=== PATIENT | female | born 1985 | race Caucasian/White ===

== ENCOUNTER 2016-08-15 03:16 | Emergency (ER) | payer MEDICAID ==
[2016-08-15] MEDS ORDERED: ALBUTEROL NEB 2.5 MG/3 ML INH STA (03:49)
[2016-08-15] MEDS ORDERED: HYDROcod/ACETAM 5/325 MG TABLET PO STA (03:50)
[2016-08-15] MEDS ORDERED: DEXAMETHASONE 10 MG/ML VIAL PO STA (03:50)
[2016-08-15] MEDS ORDERED: DEXAMETHASONE 10 MG/ML VIAL ONE (04:00)
[2016-08-15] MEDS ORDERED: HYDROcod/ACETAM 5/325 MG TABLET ONE (04:00)
[2016-08-15] MEDS ORDERED: ALBUTEROL NEB 2.5 MG/3 ML INH ONE (04:03)
[2016-08-15] MEDS ORDERED: HYDROcod/ACET 5/325 Prepack 6 PO ONE ×2 (04:22→04:26)
== END 2016-08-15 04:32 | disposition home or self-care (01) ==
DX: O99.513 Diseases of the respiratory system complicating pregnancy, third trimester (principal); J06.9 Acute upper respiratory infection, unspecified; O09.293 Supervision of pregnancy with other poor reproductive or obstetric history, third trimester; Z3A.36 36 weeks gestation of pregnancy; Z87.891 Personal history of nicotine dependence
CPT/HCPCS: 94640; 99282; 99283; A9270; J7613

== ENCOUNTER 2017-04-03 15:11 | Emergency (ER) | payer OTHER, MEDICAID ==
--- NOTE | 2017-04-03 15:20 | ED Physician Documentation ---
PD HPI HEENT - Stated complaint Stated Complaint: SWOLLEN TONGUE - Chief complaint Chief Complaint: Heent - History obtained from History obtained from: Patient - History of Present Illness Timing - onset: How many days ago (few days of tongue swelling under area of long-time piercing. Has not had new ring/stud, same one for 3 months, without prior reaction to metals. No prior infections.) Timing - duration: Days Timing - details: Gradual onset, Still present Location: Mouth (tongue). 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) - Past Surgical History Past Surgical History: Yes /SCRIPT EDITOR: Dilation and currettage - Present Medications Home Medications: Ambulatory Orders Medication Instructions Recorded Confirmed Cetirizine [ZyrTEC] 10 mg PO DAILY 04/03/17 04/03/17 Chlorhexidine Gluconate [Peridex] 5 ml MM BID #118 ml 04/03/17 Clindamycin [Cleocin] 150 mg PO QID #24 capsule 04/03/17 - Allergies Allergies/Adverse Reactions: Allergies Allergy/AdvReac Type Severity Reaction Status Date / Time Penicillins Allergy Mild Rash Verified 04/03/17 15:16 Children's Motrin Allergy Hives Uncoded 04/03/17 15:16 - Social History Does the pt smoke?: No Smoking Status: Former smoker Does the pt drink ETOH?: Yes Does the pt have substance abuse?: No - Immunizations Immunizations are current?: Yes - POLST Patient has POLST: No PD ED PE NORMAL - Vitals Vital signs reviewed: Yes - General General: Alert and oriented X 3, No acute distress, Well developed/nourished - HEENT HEENT: Other (tongue with piercing hole without discharge. Stud is out right now. area of firmness and tenderness of tongue in a cm size or so. No fluctuance. No redness per se.) - Neck Neck: Supple, no meningeal sign, No adenopathy Results - Vitals Vitals: Oxygen O2 Source Room air PD MEDICAL DECISION MAKING - ED course Complexity details: considered differential (firmness without fluctuance in area and there is the hole from the piercing, so no need for I&D. ), d/w patient Departure - Departure Disposition: 01 Home, Self Care Clinical Impression: Infected pierced tongue Condition: Stable Record reviewed to determine appropriate education?: Yes Prescriptions: Clindamycin [Cleocin] 150 mg PO QID #24 capsule Chlorhexidine Gluconate [Peridex] 5 ml MM BID #118 ml Comments: I assume infection is the most likely cause for the swelling of the tongue even though it does not seem purulent. The swelling of there feels like inflammation. I would do some antimicrobial mouth rinse 2-3 times a day and you could even use a Q-tip at the piercing site with it. Also clindamycin oral antibiotic as directed. See if the swelling goes down over the next few days. Discharge Date/Time: 04/03/17 16:07
[2017-04-03 15:49] VITALS: BP 112/66
== END 2017-04-03 16:07 | disposition home or self-care (01) ==
LOC: ED 15:11
DX: K14.0 Glossitis (principal); Z87.891 Personal history of nicotine dependence
CPT/HCPCS: 99282; 99283

== ENCOUNTER 2017-04-11 18:09 | Emergency (ER) | payer MEDICAID, OTHER ==
[2017-04-11] MEDS ORDERED: LIDOCAINE VISCOUS 2% 15 ML UDC MM STA (18:33)
[2017-04-11] MEDS ORDERED: MAG HYDROX/AL HYDROX/SIMETH 30 ML UDC PO STA (18:33)
--- NOTE | 2017-04-11 18:35 | ED Physician Documentation ---
PD HPI ABD PAIN - Stated complaint Stated Complaint: ADB PX - Chief complaint Chief Complaint: Abd Pain - History obtained from History obtained from: Patient - History of Present Illness Timing - onset: Other (3 nights ago on Tuesday night she went out and she was drinking heavily. She partially remembers getting accidentally pushed while she was dancing and her upper abdomen ran into the edge of a counter. The next day she was having upper abdominal pain but she thought she was just hung over but she has persistent upper abdominal pain radiating to the back ever since. She has had a tubal ligation and a D&C with no other abdominal surgeries. She is not sure if the pain gets worse if she eats. No fevers. She is nauseous but not vomiting. She has had decreased but not absent bowel movements and decreased appetite.) Review of Systems Constitutional: denies: Fever, Chills Cardiac: denies: Chest pain / pressure, Palpitations, Pedal edema, Calf pain Respiratory: denies: Dyspnea, Cough, Hemoptysis, Wheezing GI: reports: Nausea. 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 - Present Medications Home Medications: Ambulatory Orders Medication Instructions Recorded Confirmed Cetirizine [ZyrTEC] 10 mg PO DAILY 04/03/17 04/11/17 Omeprazole [PriLOSEC] 20 mg PO DAILY #14 capsule 04/11/17 Ondansetron HCl [Zofran] 4 mg PO Q6H PRN #10 tablet 04/11/17 - Allergies Allergies/Adverse Reactions: Allergies Allergy/AdvReac Type Severity Reaction Status Date / Time Penicillins Allergy Mild Rash Verified 04/11/17 18:18 Children's Motrin Allergy Hives Uncoded 04/11/17 18:18 - Social History Does the pt smoke?: No Smoking Status: Former smoker Does the pt drink ETOH?: Yes Does the pt have substance abuse?: No - Immunizations Immunizations are current?: Yes - POLST Patient has POLST: No PD ED PE NORMAL - Vitals Vital signs reviewed: Yes - General General: Alert and oriented X 3, No acute distress - HEENT HEENT: PERRL, EOMI - Neck Neck: Supple, no meningeal sign, No bony TTP - Cardiac Cardiac: RRR, No murmur - Respiratory Respiratory: No respiratory distress, Clear bilaterally - Abdomen Abdomen: Other (Soft with normal bowel tones, mildly tender in the epigastrium and left upper quadrant without lower abdominal or right upper quadrant tenderness.) - Neuro Neuro: Alert and oriented X 3, Normal speech - Psych Psych: Normal mood, Normal affect Results - Vitals Vitals: Vital Signs - 24 hr 04/11/17 18:16 Temperature 36.1 C L Heart Rate 77 Respiratory 18 Rate Blood Pressure 116/77 O2 Saturation 99 Oxygen O2 Source Room air - Labs Labs: Laboratory Tests 04/11/17 04/11/17 04/11/17 18:55 18:55 18:55 WBC 11.5 H RBC 4.57 Hgb 12.8 Hct 38.0 MCV 83.1 MCH 28.0 MCHC 33.7 RDW 13.7 Plt Count 377 MPV 7.4 L Neut # 7.2 H Lymph # 3.1 [place] # 0.7 Eos # 0.3 Baso # 0.1 Absolute Nucleated RBC 0.01 Nucleated RBCs 0.1 Sodium 138 Potassium 3.5 Chloride 105 Carbon Dioxide 24 Anion Gap 9.0 BUN 14 Creatinine 0.5 Estimated GFR (MDRD) 146 Glucose 118 H Calcium 9.1 Total Bilirubin 1.0 AST 16 ALT 12 Alkaline Phosphatase 59 Total Protein 7.6 Albumin 4.6 Globulin 3.0 Albumin/Globulin Ratio 1.5 Lipase 39 Urine Color YELLOW Urine Clarity CLEAR Urine pH 6.0 Ur Specific Berger >=1.030 H Urine Protein TRACE Urine Glucose (UA) NEGATIVE Urine Ketones NEGATIVE Urine Occult Blood SMALL H Urine Nitrite NEGATIVE Urine Bilirubin NEGATIVE Urine Urobilinogen 0.2 (NORMAL) Ur Leukocyte Esterase NEGATIVE Urine RBC 0-5 Urine WBC 0-3 Ur Squamous Epith Cells MOD Squamous H Urine Bacteria Rare Urine Mucus Moderate Strands Ur Microscopic Review INDICATED Urine Culture Comments NOT INDICATED Urine HCG, Qual 04/11/17 18:55 WBC RBC Hgb Hct MCV MCH MCHC RDW Plt Count MPV Neut # Lymph # [place] # Eos # Baso # Absolute Nucleated RBC Nucleated RBCs Sodium Potassium Chloride Carbon Dioxide Anion Gap BUN Creatinine Estimated GFR (MDRD) Glucose Calcium Total Bilirubin AST ALT Alkaline Phosphatase Total Protein Albumin Globulin Albumin/Globulin Ratio Lipase Urine Color Urine Clarity Urine pH Ur Specific Berger >=1.030 H Urine Protein Urine Glucose (UA) Urine Ketones Urine Occult Blood Urine Nitrite Urine Bilirubin Urine Urobilinogen Ur Leukocyte Esterase Urine RBC Urine WBC Ur Squamous Epith Cells Urine Bacteria Urine Mucus Ur Microscopic Review Urine Culture Comments Urine HCG, Qual NEGATIVE - Rads (name of study) cT a/p Radiology: EMP read contemporaneously (Bilateral nephrolithiasis which she was already aware of because she has had kidney stones before and a stable hemangioma without posttraumatic abnormality.) PD MEDICAL DECISION MAKING - ED course ED course: 31-year-old woman with persistent upper abdominal pain after a night of heavy drinking and potential upper abdominal trauma. Did not have much relief with the GI cocktail here. Labs and CT were reassuring without evidence of trauma or pancreatitis. Departure - Departure Disposition: Home, Self Care Clinical Impression: Abdominal pain Qualifiers: Abdominal location: epigastric Qualified Code(s): R10.13 - Epigastric pain Condition: Good Record reviewed to determine appropriate education?: Yes Instructions: ED Abdominal Pain Unkn Cause Prescriptions: Omeprazole [PriLOSEC] 20 mg PO DAILY #14 capsule Ondansetron HCl [Zofran] 4 mg PO Q6H PRN #10 tablet PRN Reason: Nausea / Vomiting Comments: Call your doctor to arrange a follow-up appointment, make the next available appointment. In the interim, return anytime if worse or if new symptoms develop. Forms: Activity restrictions
[2017-04-11] MEDS ORDERED: MAG HYDROX/AL HYDROX/SIMETH 30 ML UDC ONE (18:40)
[2017-04-11] MEDS ORDERED: LIDOCAINE VISCOUS 2% 15 ML UDC MM ONE (18:40)
[2017-04-11 18:59] LABS: BILIRUBIN,URINE NEGATIVE (NEGATIVE)
[2017-04-11 19:02] LABS: UA w/ MICROSCOPIC CHARGE YES
[2017-04-11 19:12] LABS: ALBUMIN/GLOBULIN RATIO 1.5 (1.0-2.2); BASOPHILS # (AUTO) 0.1 10^3/uL (0.0-0.1); CALCIUM 9.1 mg/dL (8.5-10.3); CREATININE 0.5 mg/dL (0.4-1.0); EOSINOPHILS # (AUTO) 0.3 10^3/uL (0.0-0.7); HGB - HEMOGLOBIN 12.8 g/dL (12.0-16.0); LYMPHOCYTES # (AUTO) 3.1 10^3/uL (1.5-3.5); LYMPHOCYTES % (AUTO) 27.1 %; MEAN CORPUSCULAR HGB CONC 33.7 g/dL (32.0-36.0); MEAN CORPUSCULAR VOLUME 83.1 fL (81.0-99.0); MEAN PLATELET VOLUME 7.4 fL (7.9-10.8); MONOCYTES # (AUTO) 0.7 10^3/uL (0.0-1.0); MONOCYTES % (AUTO) 6.2 %; NEUTROPHILS # (AUTO) 7.2 10^3/uL (1.5-6.6); NEUTROPHILS % (AUTO) 62.7 %; NUCLEATED RED BLOOD CELLS AUTO 0.1 /100WBC; POTASSIUM 3.5 mmol/L (3.5-5.0); RED BLOOD COUNT 4.57 10^6/uL (4.20-5.40); RED CELL DISTRIBUTION WIDTH 13.7 % (12.0-15.0); TOTAL PROTEIN 7.6 g/dL (6.7-8.2); UNCORRECTED WHITE BLOOD COUNT 11.5 x10^3/uL; UR CULTURE IF IND NOT INDICATED; WBC,URINE 0-3 /HPF (0-5); WHITE BLOOD COUNT 11.5 x10^3/uL (4.8-10.8)
[2017-04-11 19:46] LABS: HCG UR QUAL NEGATIVE
[2017-04-11] MEDS ORDERED: IOPAMIDOL-300 100 ML VIAL IVP ONE (19:52)
--- NOTE | 2017-04-11 20:14 | CT Preliminary Report ---
Exam: CT Abdomen W/ IMPRESSION: 1. Stable 1.8 cm hemangioma right lobe of the liver. 2. Bilateral nephrolithiasis. 3. No acute posttraumatic abnormality. [facility] SITE ID: [id number]
[2017-04-11] MEDS ORDERED: ONDANSETRON ODT 4 MG TABLET TL STA (20:20)
[2017-04-11] MEDS ORDERED: PANTOPRAZOLE 40 MG TABLET PO STA (20:20)
--- NOTE | 2017-04-11 20:21 | CT Report ---
EXAM: CT ABDOMEN EXAM DATE: 04/11/2017 07:53 PM. CLINICAL HISTORY: Upper abdominal pain following trauma. COMPARISON: Limited abdominal ultrasound 03/25/2016. No prior CT study.. TECHNIQUE: Routine helical CT imaging was performed through the abdomen. IV contrast: 100 mL isovue- 300 Enteric contrast: No. Reconstruction: Coronal and sagittal. In accordance with CT protocol optimization, one or more of the following dose reduction techniques w ere utilized for this exam: automated exposure control, adjustment of mA and/or KV based on patient s ize, or use of iterative reconstructive technique. FINDINGS: Lung Bases: Unremarkable. Liver: Stable 1.8 cm lesion right lobe of liver consistent with hemangioma. Several 3 mm hepatic cyst s. Gallbladder/Bile Ducts: Unremarkable. Spleen: Normal. Pancreas: Normal. Adrenal Glands: Normal. Kidneys: 1.5 cm staghorn calculus inferior left calyceal system. Several 5 mm and smaller stones in b oth kidneys. No hydronephrosis nor renal mass lesions. Peritoneal Cavity/Bowel: Normal. No free fluid, free air or adenopathy. No masses or acute inflammato ry process. The appendix is well visualized and normal. Vasculature: No aneurysms or other significant abnormality. Bones: Old minimal anterior wedging T11. Trabecular and cortical patterns are intact. Other: None. IMPRESSION: 1. Stable 1.8 cm hemangioma right lobe of the liver. 2. Bilateral nephrolithiasis. 3. No acute posttraumatic abnormality. [facility] Referring Provider Line: [phone] SITE ID: [id number]
[2017-04-11] MEDS ORDERED: ONDANSETRON ODT 4 MG TABLET ONE (20:26)
[2017-04-11] MEDS ORDERED: PANTOPRAZOLE 40 MG TABLET ONE (20:26)
[2017-04-11 20:27] VITALS: BP 112/70
== END 2017-04-11 20:27 | disposition home or self-care (01) ==
LOC: ED 18:09
DX: R10.13 Epigastric pain (principal); R10.12 Left upper quadrant pain; Z87.891 Personal history of nicotine dependence
CPT/HCPCS: 36415; 74160; 80053; 81001; 81025; 83690; 85025; 99283; A9270; Q0162; Q9967; 81003; 87086

== ENCOUNTER 2017-05-10 12:59 | Emergency (ER) | payer MEDICAID ==
[2017-05-10] MEDS ORDERED: ONDANSETRON 4 MG/2 ML VIAL IVP STA (15:25)
[2017-05-10] MEDS ORDERED: SODIUM CHLORIDE 0.9% 1,000 ML IV ONE (15:25)
--- NOTE | 2017-05-10 15:27 | ED Physician Documentation ---
PD HPI NVD - Stated complaint Stated Complaint: DIARRHEA/ABD PX - Chief complaint Chief Complaint: Abd Pain - History obtained from History obtained from: Patient, Family - History of Present Illness Timing - onset: Enter time (1400), Yesterday Timing - duration: Days (1) Timing - details: Gradual onset, Still present Associated symptoms: Abdominal pain Contributing factors: No: Sick contact Improved by: Laying still Similar symptoms before: Has not had sx before Recently seen: Not recently seen - Additonal information Additional information: 31-year-old female was well yesterday morning and after lunch she began to develop some abdominal pain and diarrhea. She has had diarrhea all night long with watery diarrhea and abdominal cramping. She has had some nausea but no vomiting. She has held some fluids down and was not able to eat this morning. She has not had this happen to her previously and she remembers the last thing that she ate was a can of chili that looked and tasted normal. Review of Systems Constitutional: reports: Fatigue. denies: Fever, Chills Eyes: denies: Decreased vision Ears: denies: Ear pain Nose: denies: Congestion Throat: denies: Sore throat Cardiac: denies: Chest pain / pressure, Palpitations Respiratory: denies: Dyspnea, Cough GI: reports: Abdominal Pain, Nausea, Diarrhea. 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 - Present Medications Home Medications: Ambulatory Orders Medication Instructions Recorded Confirmed Fexofenadine HCl [Denise Allergy] 60 mg PO DAILY 05/10/17 05/10/17 Ondansetron Odt [Zofran] 4 mg TL Q6H PRN #10 tablet 05/10/17 - Allergies Allergies/Adverse Reactions: Allergies Allergy/AdvReac Type Severity Reaction Status Date / Time Penicillins Allergy Mild Rash Verified 05/10/17 13:08 Children's Motrin Allergy Hives Uncoded 04/11/17 18:18 - Social History Does the pt smoke?: No Smoking Status: Former smoker Does the pt drink ETOH?: Yes Does the pt have substance abuse?: No - Immunizations Immunizations are current?: Yes - POLST Patient has POLST: No PD ED PE NORMAL - Vitals Vital signs reviewed: Yes (normal ) - General General: No acute distress, Well developed/nourished - HEENT HEENT: Atraumatic, PERRL - Neck Neck: Supple, no meningeal sign - Cardiac Cardiac: No murmur, Other (tachy to 100) - Abdomen Abdomen: Soft, Other (mild general tenderness without garding or rebound tenderness. ) - Back Back: No CVA TTP, No spinal TTP - Derm Derm: Normal color, Warm and dry, No rash - Extremities Extremities: No deformity, No edema - Neuro Neuro: No motor deficit, No sensory deficit - Psych Psych: Normal mood, Normal affect Results - Vitals Vitals: Vital Signs - 24 hr 05/10/17 05/10/17 05/10/17 13:04 14:58 16:16 Temperature 36.3 C L 36.0 C L 35.8 C L Heart Rate 75 68 62 Respiratory 16 12 12 Rate Blood Pressure 114/71 101/51 L 117/75 O2 Saturation 100 97 99 Oxygen O2 Source Room air - Labs Labs: Laboratory Tests 05/10/17 05/10/17 15:32 15:32 WBC 8.6 RBC 4.78 Hgb 13.4 Hct 40.0 MCV 83.6 MCH 28.0 MCHC 33.5 RDW 14.1 Plt Count 313 MPV 7.2 L Neut # 6.2 Lymph # 1.5 [place] # 0.6 Eos # 0.3 Baso # 0.0 Absolute Nucleated RBC 0.00 Nucleated RBC % 0.0 Sodium 136 Potassium 3.6 Chloride 107 Carbon Dioxide 22 Anion Gap 7.0 BUN 9 Creatinine 0.4 Estimated GFR (MDRD) 189 Glucose 94 Calcium 8.4 L Total Bilirubin 2.2 H AST 12 ALT 12 Alkaline Phosphatase 54 Total Protein 7.0 Albumin 3.8 Globulin 3.2 Albumin/Globulin Ratio 1.2 Lipase 32 Procedures - IVC sono (time) 1520 Bedside IVC sono: IVC measures (cm) (0.93), IVC collapsed c insp (cm) (complete) , Dehydration PD MEDICAL DECISION MAKING - ED course Complexity details: reviewed results, re-evaluated patient, considered differential, d/w patient, d/w family ED course: 31-year-old previously healthy female with acute onset of watery diarrhea last night which is been profuse. She is now dehydrated and here in the emergency department she is administered intravenous fluids and Zofran. Departure - Departure Disposition: 01 Home, Self Care Clinical Impression: Gastroenteritis Condition: Stable Instructions: ED Food Poison Or Gastroenteritis Follow-Up: Pili Wyatt NP [Primary Care Provider] - Prescriptions: Ondansetron Odt [Zofran] 4 mg TL Q6H PRN #10 tablet PRN Reason: Nausea / Vomiting Forms: Activity restrictions
[2017-05-10 15:41] LABS: BASOPHILS % (AUTO) 0.3 %; EOSINOPHILS # (AUTO) 0.3 10^3/uL (0.0-0.7); EOSINOPHILS % (AUTO) 3.3 %; HGB - HEMOGLOBIN 13.4 g/dL (12.0-16.0); LYMPHOCYTES # (AUTO) 1.5 10^3/uL (1.5-3.5); LYMPHOCYTES % (AUTO) 17.2 %; MEAN CORPUSCULAR HGB CONC 33.5 g/dL (32.0-36.0); MEAN CORPUSCULAR VOLUME 83.6 fL (81.0-99.0); MEAN PLATELET VOLUME 7.2 fL (7.9-10.8); MONOCYTES # (AUTO) 0.6 10^3/uL (0.0-1.0); MONOCYTES % (AUTO) 6.7 %; NEUTROPHILS # (AUTO) 6.2 10^3/uL (1.5-6.6); NEUTROPHILS % (AUTO) 72.5 %; RED BLOOD COUNT 4.78 10^6/uL (4.20-5.40); RED CELL DISTRIBUTION WIDTH 14.1 % (12.0-15.0); UNCORRECTED WHITE BLOOD COUNT 8.6 x10^3/uL; WHITE BLOOD COUNT 8.6 x10^3/uL (4.8-10.8)
[2017-05-10 15:50] LABS: ALBUMIN/GLOBULIN RATIO 1.2 (1.0-2.2); BILIRUBIN,TOTAL 2.2 mg/dL (0.2-1.0); CALCIUM 8.4 mg/dL (8.5-10.3); CREATININE 0.4 mg/dL (0.4-1.0); POTASSIUM 3.6 mmol/L (3.5-5.0)
[2017-05-10] MEDS ORDERED: ONDANSETRON 4 MG/2 ML VIAL ONE (16:42)
[2017-05-10 18:17] VITALS: BP 111/60
== END 2017-05-10 18:16 | disposition home or self-care (01) ==
LOC: ED 12:59
DX: K52.9 Noninfective gastroenteritis and colitis, unspecified (principal); Z87.891 Personal history of nicotine dependence
CPT/HCPCS: 36415; 80053; 83690; 85025; 96374; 99283

== ENCOUNTER 2020-08-01 14:49 | Outpatient (CLI) | payer OTHER | END 2020-08-01 14:50 | disposition home or self-care (01) | LOC: COV 14:49 | PROVIDERS: ATTEND Family Medicine | DX: Z20.828 Contact with and (suspected) exposure to other viral communicable diseases (principal) ==

== ENCOUNTER 2022-07-09 12:57 | Emergency (ER) | payer OTHER ==
--- OUTSIDE RECORDS SUMMARY | 2022-07-09 13:37 | EXTERNAL MEDICAL SUMMARY RPT | Continuity of Care Document ---
:1985 Author Organization [facility] Address [address] [place] [address] Phone Care Team Providers Name Role Phone Danielle Kernsn Unavailable Unavailable Allergies and Intolerances date description facility type (no date) [facility] (unknown) Encounters No information. Functional Status No information. Immunizations No information. Medications date description facility [id number] [facility] Problems No information. Procedures No information. Results/Labs test date author facility value unit interpret ation Result panel 1 (unknown) (no (unknown) (unknown) (no value) (units (unk nown) date) unknown) (unknown) (no (unknown) (unknown) [id number] (units (unkn own) date) unknown) (unknown) (no (unknown) (unknown) 06/21/22 (units (unkno wn) date) unknown) (unknown) (no (unknown) (unknown) Acute maxillary (units (unknown) date) sinusitis unknown) (unknown) (no (unknown) (unknown) Age/Sex: 36 / F (units (unknown) date) Date of Service: unknown) (unknown) (no (unknown) (unknown) Allergies (units (unkn own) date) unknown) (unknown) (no (unknown) (unknown) [facility] (units (unknown) date) Medicine unknown) (unknown) (no (unknown) (unknown) [place], [place] (units ( unknown) date) [id number] unknown) (unknown) (no (unknown) (unknown) Anesthesia (units (unk nown) date) unknown) (unknown) (no (unknown) (unknown) Ankle pain (units (unk nown) date) () unknown) (unknown) (no (unknown) (unknown) Attending Dr: (units ( unknown) date) Adry Abarca unknown) 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 unknown) (unknown) (no (unknown) (unknown) Documented By: (units (unknown) date) Adry Abarca unknown) [facility] 06/21/22 0943 (unknown) (no (unknown) (unknown) Draft (units (unkno wn) date) unknown) (unknown) (no (unknown) (unknown) Family History (units (unknown) date) (Reviewed 02/05/22 unknown) @ 11:14 by Presley Kerns DO) (unknown) (no (unknown) (unknown) Family Practice (units (unknown) date) Office Visit unknown) (unknown) (no (unknown) (unknown) Father Age: 64 (units (unknown) date) Diabetes mellitus unknown) (unknown) (no (unknown) (unknown) Foot pain (-2012) (units (unknown) date) unknown) (unknown) (no (unknown) (unknown) Grandfather (units (un known) date) Bladder cancer unknown) (unknown) (no (unknown) (unknown) Grandfather (units (un known) date) Diabetes unknown) mellitus (unknown) (no (unknown) (unknown) Grandmother (units (un known) date) Glaucoma unknown) (unknown) (no (unknown) (unknown) HIVES (units (unkno wn) date) unknown) (unknown) (no (unknown) (unknown) History of (units (unk nown) date) nephrolithiasis unknown) (unknown) (no (unknown) (unknown) Hypertension (units (u nknown) date) unknown) (unknown) (no (unknown) (unknown) Intake Note: (units (u nknown) date) unknown) (unknown) (no (unknown) (unknown) Intake performed (units (unknown) date) by: Nadine Lorenzana unknown) (unknown) (no (unknown) (unknown) Intake (units (unkno wn) date) unknown) (unknown) (no (unknown) (unknown) Intake- Clincial (units (unknown) date) Staff unknown) (unknown) (no (unknown) (unknown) Last Menstural (units (unknown) date) Cycle + Details unknown) (unknown) (no (unknown) (unknown) Loc: [facility] (units (unkno wn) date) unknown) (unknown) (no (unknown) (unknown) Medical History (units (unknown) date) (Updated 02/05/22 unknown) @ 11:15 by Presley Kerns DO) (unknown) (no (unknown) (unknown) Medications (units (un known) date) unknown) (unknown) (no (unknown) (unknown) Other Menstrual (units (unknown) date) Period: Other unknown) (unknown) (no (unknown) (unknown) PFSH (units (unkno wn) date) unknown) (unknown) (no (unknown) (unknown) Patient presents (units (unknown) date) to [facility] with unknown) concerns for chest tightness, productive cough x 2 (unknown) (no (unknown) (unknown) Patient: (units (unkno wn) date) Caroline Muhammad Alejandra unknown) MR#: M (unknown) (no (unknown) (unknown) Penicillins (units (un known) date) [PENICILLINS] unknown) Allergy (Mild, Verified 06/21/22 09:47) (unknown) (no (unknown) (unknown) Peroneal (units (unkno wn) date) tendonitis unknown) (unknown) (no (unknown) (unknown) Reason For Visit (units (unknown) date) unknown) (unknown) (no (unknown) (unknown) Signed By: (units (unk nown) date) unknown) (unknown) (no (unknown) (unknown) Smoking Status: (units (unknown) date) Former smoker unknown) (unknown) (no (unknown) (unknown) Status post (units (un known) date) dilation and unknown) curettage () (unknown) (no (unknown) (unknown) Status post tubal (units (unknown) date) ligation unknown) (09/16/16) (unknown) (no (unknown) (unknown) Surgical History (units (unknown) date) (Reviewed 02/05/22 unknown) @ 11:14 by Presley Kerns DO) (unknown) (no (unknown) (unknown) TMJ pain (units (unkno wn) date) dysfunction unknown) syndrome (unknown) (no (unknown) (unknown) This note may (units ( unknown) date) have been all or unknown) partially generated using voice recognition (unknown) (no (unknown) (unknown) Tobacco + (units (unkn own) date) Substance Use unknown) (unknown) (no (unknown) (unknown) Tobacco Status (units (unknown) date) unknown) (unknown) (no (unknown) (unknown) Visit Reasons: (units (unknown) date) dry cough chest unknown) pain sob (unknown) (no (unknown) (unknown) [Rx Confirmed (units ( unknown) date) 06/21/22] unknown) (unknown) (no (unknown) (unknown) children's (units (unk nown) date) ibuprofen Allergy unknown) (Uncoded 06/21/22 09:47) (unknown) (no (unknown) (unknown) days. Patient (units (u nknown) date) reports chest unknown) tightness, intermittent brown sputum with cough, and (unknown) (no (unknown) (unknown) have occurred. If (units (unknown) date) there are any unknown) questions, please contact the Medical Records (unknown) (no (unknown) (unknown) may occur. (units (unk nown) date) Occasional unknown) wrong-word or 'sound-alike' substitutions may have (unknown) (no (unknown) (unknown) occurred due to (units (unknown) date) the inherent unknown) limitations of voice recognition software. Please (unknown) (no (unknown) (unknown) pressure headache (units (unknown) date) with cough. Denies unknown) fever. (unknown) (no (unknown) (unknown) read the note (units ( unknown) date) carefully and unknown) recognize, using context, where these substitutions (unknown) (no (unknown) (unknown) sertraline 100 mg (units (unknown) date) tablet See Rx unknown) Instructions .Route .COMPLEX #90 tabs 04/13/22 (unknown) (no (unknown) (unknown) software. (units (unkn own) date) Although every unknown) effort is made to edit content, chip silo tender errors Result panel 2 (unknown) (no (unknown) (unknown) (no value) (units (unk nown) date) unknown) (unknown) (no (unknown) (unknown) [id number] (units (unkn own) date) unknown) (unknown) (no (unknown) (unknown) 09:50 (units (unkno wn) date) unknown) (unknown) (no (unknown) (unknown) 06/21/22 (units (unkno wn) date) unknown) (unknown) (no (unknown) (unknown) Acute maxillary (units (unknown) date) sinusitis unknown) (unknown) (no (unknown) (unknown) Age/Sex: 36 / F (units (unknown) date) Date of Service: unknown) (unknown) (no (unknown) (unknown) Allergies (units (unkn own) date) unknown) (unknown) (no (unknown) (unknown) [facility] (units (unknown) date) Medicine unknown) (unknown) (no (unknown) (unknown) [place], [place] (units ( unknown) date) [id number] unknown) (unknown) (no (unknown) (unknown) Anesthesia (units (unk nown) date) unknown) (unknown) (no (unknown) (unknown) Ankle pain (units (unk nown) date) () unknown) (unknown) (no (unknown) (unknown) Assessment + Plan (units (unknown) date) unknown) (unknown) (no (unknown) (unknown) Attending Dr: (units ( unknown) date) Adry Abarca unknown) RECONCILIATION MANAGER (unknown) (no (unknown) (unknown) BP 118/85 (units (unkn own) date) unknown) (unknown) (no (unknown) (unknown) Blood Pressure (units (unknown) date) Location Lt radial unknown) (unknown) (no (unknown) (unknown) Breast cancer (units ( unknown) date) unknown) (unknown) (no (unknown) (unknown) Brother Age: 32 (units (unknown) date) Hypertension unknown) (unknown) (no (unknown) (unknown) Carpal tunnel (units ( unknown) date) syndrome of right unknown) wrist (unknown) (no (unknown) (unknown) Covid-19 + FLU (units (unknown) date) A/B + RSV - PCR unknown) Today R05.9 - Cough, unspecified (unknown) (no (unknown) (unknown) : 1985 (units (unknown) date) Acct:[id number] unknown) (unknown) (no (unknown) (unknown) Depression (units (unk nown) date) (-2014) unknown) (unknown) (no (unknown) (unknown) Dept at (units (unkno wn) date) . unknown) (unknown) (no (unknown) (unknown) Documented By: (units (unknown) date) Adry Abarca unknown) [facility] 06/21/22 0943 (unknown) (no (unknown) (unknown) Draft (units (unkno wn) date) unknown) (unknown) (no (unknown) (unknown) Family History (units (unknown) date) (Reviewed 02/05/22 unknown) @ 11:14 by Presley Kerns DO) (unknown) (no (unknown) (unknown) Family Practice (units (unknown) date) Office Visit unknown) (unknown) (no (unknown) (unknown) Father Age: 64 (units (unknown) date) Diabetes mellitus unknown) (unknown) (no (unknown) (unknown) Foot pain (-2012) (units (unknown) date) unknown) (unknown) (no (unknown) (unknown) Grandfather (units (un known) date) Bladder cancer unknown) (unknown) (no (unknown) (unknown) Grandfather (units (un known) date) Diabetes unknown) mellitus (unknown) (no (unknown) (unknown) Grandmother (units (un known) date) Glaucoma unknown) (unknown) (no (unknown) (unknown) HIVES (units (unkno wn) date) unknown) (unknown) (no (unknown) (unknown) History of (units (unk nown) date) nephrolithiasis unknown) (unknown) (no (unknown) (unknown) Hypertension (units (u nknown) date) unknown) (unknown) (no (unknown) (unknown) Intake Note: (units (u nknown) date) unknown) (unknown) (no (unknown) (unknown) Intake performed (units (unknown) date) by: Nadine Lorenzana unknown) (unknown) (no (unknown) (unknown) Intake (units (unkno wn) date) unknown) (unknown) (no (unknown) (unknown) Intake- Clincial (units (unknown) date) Staff unknown) (unknown) (no (unknown) (unknown) Last Menstural (units (unknown) date) Cycle + Details unknown) (unknown) (no (unknown) (unknown) Loc: [facility] (units (unkno wn) date) unknown) (unknown) (no (unknown) (unknown) Medical History (units (unknown) date) (Updated 02/05/22 unknown) @ 11:15 by Presley Kerns DO) (unknown) (no (unknown) (unknown) Medications (units (un known) date) unknown) (unknown) (no (unknown) (unknown) Orders (units (unkno wn) date) unknown) (unknown) (no (unknown) (unknown) Orders: (units (unkno wn) date) unknown) (unknown) (no (unknown) (unknown) Other Menstrual (units (unknown) date) Period: Other unknown) (unknown) (no (unknown) (unknown) Oxygen Delivery (units (unknown) date) Method room air unknown) (unknown) (no (unknown) (unknown) PFSH (units (unkno wn) date) unknown) (unknown) (no (unknown) (unknown) Patient presents (units (unknown) date) to [facility] with unknown) concerns for chest tightness, productive cough x 2 (unknown) (no (unknown) (unknown) Patient: (units (unkno wn) date) Caroline Muhammad L unknown) MR#: M (unknown) (no (unknown) (unknown) Penicillins (units (un known) date) [PENICILLINS] unknown) Allergy (Mild, Verified 06/21/22 09:47) (unknown) (no (unknown) (unknown) Peroneal (units (unkno wn) date) tendonitis unknown) (unknown) (no (unknown) (unknown) Position Sitting (units (unknown) date) unknown) (unknown) (no (unknown) (unknown) Pulse 80 (units (unkno wn) date) unknown) (unknown) (no (unknown) (unknown) Pulse Oximetry (units (unknown) date) (%) 99 unknown) (unknown) (no (unknown) (unknown) Pulse Source (units (u nknown) date) Monitor unknown) (unknown) (no (unknown) (unknown) Reason For Visit (units (unknown) date) unknown) (unknown) (no (unknown) (unknown) Respiration 16 (units (unknown) date) unknown) (unknown) (no (unknown) (unknown) Signed By: (units (unk nown) date) unknown) (unknown) (no (unknown) (unknown) Smoking Status: (units (unknown) date) Former smoker unknown) (unknown) (no (unknown) (unknown) Status post (units (un known) date) dilation and unknown) curettage () (unknown) (no (unknown) (unknown) Status post tubal (units (unknown) date) ligation unknown) (09/16/16) (unknown) (no (unknown) (unknown) Surgical History (units (unknown) date) (Reviewed 02/05/22 unknown) @ 11:14 by Presley Kerns DO) (unknown) (no (unknown) (unknown) TMJ pain (units (unkno wn) date) dysfunction unknown) syndrome (unknown) (no (unknown) (unknown) Temp 96.9 F L (units ( unknown) date) unknown) (unknown) (no (unknown) (unknown) Temp Source (units (un known) date) Temporal Artery unknown) Scan (unknown) (no (unknown) (unknown) This note may (units ( unknown) date) have been all or unknown) partially generated using voice recognition (unknown) (no (unknown) (unknown) Tobacco + (units (unkn own) date) Substance Use unknown) (unknown) (no (unknown) (unknown) Tobacco Status (units (unknown) date) unknown) (unknown) (no (unknown) (unknown) Visit Reasons: (units (unknown) date) dry cough chest unknown) pain sob (unknown) (no (unknown) (unknown) Vitals (units (unkno wn) date) unknown) (unknown) (no (unknown) (unknown) [Rx Confirmed (units ( unknown) date) 06/21/22] unknown) (unknown) (no (unknown) (unknown) children's (units (unk nown) date) ibuprofen Allergy unknown) (Uncoded 06/21/22 09:47) (unknown) (no (unknown) (unknown) days. Patient (units (u nknown) date) reports chest unknown) tightness, intermittent brown sputum with cough, and (unknown) (no (unknown) (unknown) have occurred. If (units (unknown) date) there are any unknown) questions, please contact the Medical Records (unknown) (no (unknown) (unknown) may occur. (units (unk nown) date) Occasional unknown) wrong-word or 'sound-alike' substitutions may have (unknown) (no (unknown) (unknown) occurred due to (units (unknown) date) the inherent unknown) limitations of voice recognition software. Please (unknown) (no (unknown) (unknown) pressure headache (units (unknown) date) with cough. Denies unknown) fever. (unknown) (no (unknown) (unknown) read the note (units ( unknown) date) carefully and unknown) recognize, using context, where these substitutions (unknown) (no (unknown) (unknown) sertraline 100 mg (units (unknown) date) tablet See Rx unknown) Instructions .Route .COMPLEX #90 tabs 04/13/22 (unknown) (no (unknown) (unknown) software. (units (unkn own) date) Although every unknown) effort is made to edit content, chip silo tender errors Result panel 3 (unknown) (no (unknown) (unknown) (no value) (units (unk nown) date) unknown) (unknown) (no (unknown) (unknown) (1) Viral (units (unkn own) date) illness: unknown) (unknown) (no (unknown) (unknown) [id number] (units (unkn own) date) unknown) (unknown) (no (unknown) (unknown) 09:50 (units (unkno wn) date) unknown) (unknown) (no (unknown) (unknown) 06/21/22 1006 (units ( unknown) date) unknown) (unknown) (no (unknown) (unknown) 06/21/22 (units (unkno wn) date) unknown) (unknown) (no (unknown) (unknown) Acute maxillary (units (unknown) date) sinusitis unknown) (unknown) (no (unknown) (unknown) Age/Sex: 36 / F (units (unknown) date) Date of Service: unknown) (unknown) (no (unknown) (unknown) Allergies (units (unkn own) date) unknown) (unknown) (no (unknown) (unknown) [facility] (units (unknown) date) Medicine unknown) (unknown) (no (unknown) (unknown) [place], [place] (units ( unknown) date) [id number] unknown) (unknown) (no (unknown) (unknown) Anesthesia (units (unk nown) date) unknown) (unknown) (no (unknown) (unknown) Ankle pain (units (unk nown) date) (-2012) unknown) (unknown) (no (unknown) (unknown) Assessment + Plan (units (unknown) date) unknown) (unknown) (no (unknown) (unknown) Attending Dr: (units ( unknown) date) Adry Abarca unknown) RECONCILIATION MANAGER (unknown) (no (unknown) (unknown) Auscultation: (units ( unknown) date) clear to unknown) auscultation bilaterally (unknown) (no (unknown) (unknown) BMI 36.6 (units (unkno wn) date) unknown) (unknown) (no (unknown) (unknown) BP 118/85 (units (unkn own) date) unknown) (unknown) (no (unknown) (unknown) Blood Pressure (units (unknown) date) Location Lt radial unknown) (unknown) (no (unknown) (unknown) Breast cancer (units ( unknown) date) unknown) (unknown) (no (unknown) (unknown) Brother Age: 32 (units (unknown) date) Hypertension unknown) (unknown) (no (unknown) (unknown) Carpal tunnel (units ( unknown) date) syndrome of right unknown) wrist (unknown) (no (unknown) (unknown) Chief Complaint (units (unknown) date) unknown) (unknown) (no (unknown) (unknown) Chief Complaint: (units (unknown) date) Cough unknown) (unknown) (no (unknown) (unknown) Confirmed (units (unkn own) date) 06/21/22] unknown) (unknown) (no (unknown) (unknown) Const (units (unkno wn) date) unknown) (unknown) (no (unknown) (unknown) Covid-19 + FLU (units (unknown) date) A/B + RSV - PCR unknown) Today R05.9 - Cough, unspecified (unknown) (no (unknown) (unknown) : 1985 (units (unknown) date) Acct:[id number] unknown) (unknown) (no (unknown) (unknown) Depression (units (unk nown) date) (-2014) unknown) (unknown) (no (unknown) (unknown) Dept at (units (unkno wn) date) . unknown) (unknown) (no (unknown) (unknown) Details: (units (unkno wn) date) unknown) (unknown) (no (unknown) (unknown) Documented By: (units (unknown) date) Adry Abarca unknown) [facility] 06/21/22 0943 (unknown) (no (unknown) (unknown) Ears: hearing (units ( unknown) date) grossly normal unknown) bilaterally, external ears normal and TM's normal (unknown) (no (unknown) (unknown) Effort + (units (unkno wn) date) Inspection: normal unknown) respiratory effort (unknown) (no (unknown) (unknown) Exam Narrative (units (unknown) date) unknown) (unknown) (no (unknown) (unknown) Exam Narrative: (units (unknown) date) unknown) (unknown) (no (unknown) (unknown) Exam within (units (un known) date) normal limits, HPI unknown) suggest viral symptoms. Supportive treatment (unknown) (no (unknown) (unknown) Exam (units (unkno wn) date) unknown) (unknown) (no (unknown) (unknown) Eyes (units (unkno wn) date) unknown) (unknown) (no (unknown) (unknown) Family History (units (unknown) date) (Reviewed 02/05/22 unknown) @ 11:14 by Presley Kerns DO) (unknown) (no (unknown) (unknown) Family Practice (units (unknown) date) Office Visit unknown) (unknown) (no (unknown) (unknown) Father Age: 64 (units (unknown) date) Diabetes mellitus unknown) (unknown) (no (unknown) (unknown) Foot pain (-2013) (units (unknown) date) unknown) (unknown) (no (unknown) (unknown) General: (units (unkno wn) date) appearance normal, unknown) both eyes and all related structures (unknown) (no (unknown) (unknown) General: (units (unkno wn) date) cooperative, unknown) healthy appearing, comfortable and no acute distress (unknown) (no (unknown) (unknown) General: no (units (un known) date) rashes or lesions unknown) noted (unknown) (no (unknown) (unknown) Grandfather (units (un known) date) Bladder cancer unknown) (unknown) (no (unknown) (unknown) Grandfather (units (un known) date) Diabetes unknown) mellitus (unknown) (no (unknown) (unknown) Grandmother (units (un known) date) Glaucoma unknown) (unknown) (no (unknown) (unknown) HENMT (units (unkno wn) date) unknown) (unknown) (no (unknown) (unknown) HIVES (units (unkno wn) date) unknown) (unknown) (no (unknown) (unknown) HPI (units (unkno wn) date) unknown) (unknown) (no (unknown) (unknown) Head: normal to (units (unknown) date) inspection unknown) (unknown) (no (unknown) (unknown) Height 5 ft 2 in (units (unknown) date) unknown) (unknown) (no (unknown) (unknown) History of (units (unk nown) date) nephrolithiasis unknown) (unknown) (no (unknown) (unknown) Hypertension (units (u nknown) date) unknown) (unknown) (no (unknown) (unknown) Intake Note: (units (u nknown) date) unknown) (unknown) (no (unknown) (unknown) Intake performed (units (unknown) date) by: Nadine Lorenzana unknown) (unknown) (no (unknown) (unknown) Intake (units (unkno wn) date) unknown) (unknown) (no (unknown) (unknown) Intake- Clincial (units (unknown) date) Staff unknown) (unknown) (no (unknown) (unknown) Last Menstural (units (unknown) date) Cycle + Details unknown) (unknown) (no (unknown) (unknown) Loc: [facility] (units (unkno wn) date) unknown) (unknown) (no (unknown) (unknown) Medical History (units (unknown) date) (Updated 02/05/22 unknown) @ 11:15 by Presley Kerns DO) (unknown) (no (unknown) (unknown) Medications (units (un known) date) unknown) (unknown) (no (unknown) (unknown) Medications: (units (u nknown) date) unknown) (unknown) (no (unknown) (unknown) Mouth: oral (units (un known) date) mucosae normal unknown) (unknown) (no (unknown) (unknown) Neck (units (unkno wn) date) unknown) (unknown) (no (unknown) (unknown) Neck: normal (units (u nknown) date) visual inspection, unknown) full ROM and no lymphadenopathy (unknown) (no (unknown) (unknown) New (units (unkno wn) date) unknown) (unknown) (no (unknown) (unknown) Nose: external (units (unknown) date) nose normal unknown) (unknown) (no (unknown) (unknown) Orders (units (unkno wn) date) unknown) (unknown) (no (unknown) (unknown) Orders: (units (unkno wn) date) unknown) (unknown) (no (unknown) (unknown) Other Menstrual (units (unknown) date) Period: Other unknown) (unknown) (no (unknown) (unknown) Oxygen Delivery (units (unknown) date) Method room air unknown) (unknown) (no (unknown) (unknown) PFSH (units (unkno wn) date) unknown) (unknown) (no (unknown) (unknown) Patient presents (units (unknown) date) to [facility] with unknown) concerns for chest tightness, productive cough x 2 (unknown) (no (unknown) (unknown) Patient presents (units (unknown) date) with to unknown) walk-in clinic with complaints of cough, (unknown) (no (unknown) (unknown) Patient states (units (unknown) date) that she has young unknown) kids at home who had viral illnesses the week (unknown) (no (unknown) (unknown) Patient: (units (unkno wn) date) Jb,Caroline L unknown) MR#: M (unknown) (no (unknown) (unknown) Penicillins (units (un known) date) [PENICILLINS] unknown) Allergy (Mild, Verified 06/21/22 09:47) (unknown) (no (unknown) (unknown) Peroneal (units (unkno wn) date) tendonitis unknown) (unknown) (no (unknown) (unknown) Plan (units (unkno wn) date) unknown) (unknown) (no (unknown) (unknown) Position Sitting (units (unknown) date) unknown) (unknown) (no (unknown) (unknown) Pulse 80 (units (unkno wn) date) unknown) (unknown) (no (unknown) (unknown) Pulse Oximetry (units (unknown) date) (%) 99 unknown) (unknown) (no (unknown) (unknown) Pulse Source (units (u nknown) date) Monitor unknown) (unknown) (no (unknown) (unknown) Reason For Visit (units (unknown) date) unknown) (unknown) (no (unknown) (unknown) Resp (units (unkno wn) date) unknown) (unknown) (no (unknown) (unknown) Respiration 16 (units (unknown) date) unknown) (unknown) (no (unknown) (unknown) Signed By: (units (unk nown) date) <Electronically unknown) signed by Adry Abarca> (unknown) (no (unknown) (unknown) Signed (units (unkno wn) date) unknown) (unknown) (no (unknown) (unknown) Skin (units (unkno wn) date) unknown) (unknown) (no (unknown) (unknown) Smoking Status: (units (unknown) date) Former smoker unknown) (unknown) (no (unknown) (unknown) Status post (units (un known) date) dilation and unknown) curettage (-2009) (unknown) (no (unknown) (unknown) Status post tubal (units (unknown) date) ligation unknown) (09/16/16) (unknown) (no (unknown) (unknown) Surgical History (units (unknown) date) (Reviewed 02/05/22 unknown) @ 11:14 by Presley Kerns DO) (unknown) (no (unknown) (unknown) TMJ pain (units (unkno wn) date) dysfunction unknown) syndrome (unknown) (no (unknown) (unknown) Temp 96.9 F L (units ( unknown) date) unknown) (unknown) (no (unknown) (unknown) Temp Source (units (un known) date) Temporal Artery unknown) Scan (unknown) (no (unknown) (unknown) This note may (units ( unknown) date) have been all or unknown) partially generated using voice recognition (unknown) (no (unknown) (unknown) Throat: posterior (units (unknown) date) oropharynx normal unknown) (unknown) (no (unknown) (unknown) Tobacco + (units (unkn own) date) Substance Use unknown) (unknown) (no (unknown) (unknown) Tobacco Status (units (unknown) date) unknown) (unknown) (no (unknown) (unknown) Visit Reasons: (units (unknown) date) dry cough chest unknown) pain sob (unknown) (no (unknown) (unknown) Vitals (units (unkno wn) date) unknown) (unknown) (no (unknown) (unknown) Weight 200 lb 8 (units (unknown) date) oz unknown) (unknown) (no (unknown) (unknown) [Rx Confirmed (units ( unknown) date) 06/21/22] unknown) (unknown) (no (unknown) (unknown) benzonatate 100 (units (unknown) date) mg PO BID PRN 20 unknown) caps 0RF cough (unknown) (no (unknown) (unknown) benzonatate 100 (units (unknown) date) mg capsule 100 mg unknown) PO BID PRN cough #20 caps 06/21/22 [Rx (unknown) (no (unknown) (unknown) bilaterally (units (un known) date) unknown) (unknown) (no (unknown) (unknown) children's (units (unk nown) date) ibuprofen Allergy unknown) (Uncoded 06/21/22 09:47) (unknown) (no (unknown) (unknown) days. Patient (units (u nknown) date) reports chest unknown) tightness, intermittent brown sputum with cough, and (unknown) (no (unknown) (unknown) feels wheezy (units (u nknown) date) after coughing unknown) episodes. She also reports some brown sputum. (unknown) (no (unknown) (unknown) have occurred. If (units (unknown) date) there are any unknown) questions, please contact the Medical Records (unknown) (no (unknown) (unknown) help and patient (units (unknown) date) is able to sleep unknown) throughout the night. Patient denies smoking (unknown) (no (unknown) (unknown) including (units (unkn own) date) [id number] unknown) medications such as Delsym, Tylenol/ibuprofen. Rest, (unknown) (no (unknown) (unknown) increase fluids. (units (unknown) date) Return to the unknown) emergency department if symptoms worsen, new (unknown) (no (unknown) (unknown) may occur. (units (unk nown) date) Occasional unknown) wrong-word or 'sound-alike' substitutions may have (unknown) (no (unknown) (unknown) occasional (units (unk nown) date) wheezing and chest unknown) tightness for 2 days. Patient states cough is (unknown) (no (unknown) (unknown) occurred due to (units (unknown) date) the inherent unknown) limitations of voice recognition software. Please (unknown) (no (unknown) (unknown) or any history of (units (unknown) date) respiratory issues unknown) including asthma or COPD. She reports she (unknown) (no (unknown) (unknown) oriented and (units (u nknown) date) comfortable and unknown) able to talk in full sentences without distress. (unknown) (no (unknown) (unknown) pressure headache (units (unknown) date) with cough. Denies unknown) fever. (unknown) (no (unknown) (unknown) prior. Patient (units (unknown) date) denies fever, body unknown) aches, chest pain. Patient is alert, (unknown) (no (unknown) (unknown) read the note (units ( unknown) date) carefully and unknown) recognize, using context, where these substitutions (unknown) (no (unknown) (unknown) sertraline 100 mg (units (unknown) date) tablet See Rx unknown) Instructions .Route .COMPLEX #90 tabs 04/13/22 (unknown) (no (unknown) (unknown) software. (units (unkn own) date) Although every unknown) effort is made to edit content, chip silo tender errors (unknown) (no (unknown) (unknown) symptoms develop. (units (unknown) date) Follow-up with unknown) primary care as needed. (unknown) (no (unknown) (unknown) worse in the (units (u nknown) date) morning, with unknown) [id number] cough medication it does seem to Social History date description facility +0000 Ex-smoker (finding) [facility] Vital Signs date measurement value units +0000 BMI BMI 36.6 kg/m2 +0000 BP_diastolic BP_diastolic 85 mmHg +0000 BP_systolic BP_systolic 118 mmHg [id number]+0000 heart_rate heart_rate 80 /min +0000 height_metric height_metric 157.48 cm +0000 height_standard height_standard 62 in +0000 o2_saturation o2_saturation 99 % +0000 respiration_rate respiration_rate 16 /min +0000 temperature_metric temperature_metric 36.06 C +0000 temperature_standard temperature_standard 9 6.9 F +0000 weight_metric weight_metric 90.94 kg +0000 weight_standard weight_standard 200.49 lb
--- NOTE | 2022-07-09 15:11 | XRAY Report ---
PROCEDURE: Chest 2 View X-Ray INDICATIONS: cough TECHNIQUE: 2 views of the chest were acquired. COMPARISON: Lung bases on CT abdomen and 04/11/2017. FINDINGS: Surgical changes and devices: None. Lungs and pleura: No pleural effusions or pneumothorax. Lungs appear clear. No consolidation identi fied. Mediastinum: Mediastinal contours are unchanged. Asymmetric elevation of the right hemidiaphragm.. Heart size is normal. Bones and chest wall: No suspicious bony abnormalities. Soft tissues appear unremarkable. IMPRESSION: No consolidation identified. Reviewed by: Vazquez Fuentes MD on 07/09/2022 3:10 PM PST Approved by: Vazquez Fuentes MD on 07/09/2022 3:10 PM PST Station ID: [id number]
[2022-07-09] MEDS ORDERED: BENZONATATE 100 MG CAPSULE PO STA (15:42)
[2022-07-09] MEDS ORDERED: ALBUTEROL NEB 2.5 MG/3 ML INH STA (15:42)
[2022-07-09 15:49] LABS: CORONAVIRUS 229E-RESP PCR NOT DETECTED; CORONAVIRUS HKU1-RESP PCR NOT DETECTED; CORONAVIRUS NL63-RESP PCR NOT DETECTED; CORONAVIRUS OC43-RESP PCR NOT DETECTED; HUMAN METAPNEUMOVIRUS NOT DETECTED; RHINOVIRUS/ENTEROVIRUS NOT DETECTED; SARS-CoV-2 -RESP PCR PANEL NOT DETECTED
[2022-07-09 15:50] LABS: B. PARAPERTUSSIS- RESP PCR PAN NOT DETECTED; B. PERTUSSIS- RESP PCR PANEL NOT DETECTED; C. PNEUMONIAE- RESP PCR PANEL NOT DETECTED; INFLUENZA A H3- RESP PCR PANEL DETECTED; INFLUENZA B - RESP PCR PANEL NOT DETECTED; M. PNEUMONIAE- RESP PCR PANEL NOT DETECTED; PARAINFLUENZA VIRUS 1 NOT DETECTED; PARAINFLUENZA VIRUS 2 NOT DETECTED; PARAINFLUENZA VIRUS 3 NOT DETECTED; PARAINFLUENZA VIRUS 4 NOT DETECTED; RSV- RESP PCR PANEL NOT DETECTED
--- NOTE | 2022-07-09 15:51 | ED Physician Documentation ---
PD HPI URI - Stated complaint Stated Complaint: COUGH - Chief complaint Chief Complaint: Resp - History obtained from History obtained from: Patient - History of Present Illness Timing - onset: How many weeks ago (several) Timing details: Gradual onset Pain level max: 0 Pain level now: 0 Associated symptoms: Nasal congestion, Rhinorrhea, Dry cough, Dyspnea. No: Fever, Chills Recently seen: Not recently seen - Additional information Additional information: Patient is a 36-year-old female who states that she has had a cough for the past several weeks. Children have been sick with same. She states that recently she has had increased coughing and wheezing. She has used inhalers in the past as a child. Does not use any inhalers now. No nausea or vomiting. Denies any possibility of . Is not breast-feeding. 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) - Past Surgical History Past Surgical History: Yes /STA[employer]ING [employer]: Dilation and currettage - Present Medications Home Medications: Ambulatory Orders Medication Instructions Recorded Confirmed Fexofenadine HCl [Denise Allergy] 60 mg PO DAILY 05/10/17 05/10/17 Ondansetron Odt [Zofran] 4 mg TL Q6H PRN #10 tablet 05/10/17 Albuterol Sulf [Ventolin Hfa 1 - 2 puffs INH Q4HR PRN #1 each 07/09/22 Inhaler] Benzonatate [Tessalon] 200 mg PO TID PRN #30 cap 07/09/22 - Allergies Allergies/Adverse Reactions: Allergies Allergy/AdvReac Type Severity Reaction Status Date / Time Penicillins Allergy Mild Rash Verified 05/10/17 13:08 Children's Motrin Allergy Hives Uncoded 04/11/17 18:18 - Social History Does the pt smoke?: No Smoking Status: Former smoker Does the pt drink ETOH?: Yes Does the pt have substance abuse?: No - Immunizations Immunizations are current?: Yes - POLST Patient has POLST: No PD ED PE NORMAL - Vitals Vital signs reviewed: Yes - General General: Alert and oriented X 3, No acute distress, Well developed/nourished - HEENT HEENT: PERRL, Moist mucous membranes - Neck Neck: Supple, no meningeal sign - Cardiac Cardiac: RRR - Respiratory Respiratory: No respiratory distress, Other (Mild wheezing bilaterally) - Abdomen Abdomen: Soft, Non tender, Non distended - Derm Derm: Warm and dry - Extremities Extremities: No edema, No calf tenderness / cord - Neuro Neuro: Alert and oriented X 3 - Psych Psych: Normal mood, Normal affect Results - Vitals Vitals: Vital Signs - 24 hr 07/09/22 07/09/22 07/09/22 14:14 16:07 16:21 Temperature 36.8 C 36.9 C Heart Rate 78 78 94 Respiratory 16 20 18 Rate Blood Pressure 132/93 H 133/89 H O2 Saturation 98 97 Oxygen O2 Source Room air - Labs Labs: Laboratory Tests 07/09/22 14:16 Nasal Adenovirus (PCR) NOT DETECTED Nasal B. parapertussis DNA (PCR) NOT DETECTED Nasal Coronavir 229E PCR NOT DETECTED Nasal Coronavir HKU1 PCR NOT DETECTED Nasal Coronavir NL63 PCR NOT DETECTED Nasal Coronavir OC43 PCR NOT DETECTED Nasal Enterovir/Rhinovir PCR NOT DETECTED Nasal Influenza A H3 PCR DETECTED A Nasal Influenza B PCR NOT DETECTED Nasal Parainfluen 1 PCR NOT DETECTED Nasal Parainfluen 2 PCR NOT DETECTED Nasal Parainfluen 3 PCR NOT DETECTED Nasal Parainfluen 4 PCR NOT DETECTED Nasal RSV (PCR) NOT DETECTED Nasal B.pertussis DNA PCR NOT DETECTED Nasal C.pneumoniae (PCR) NOT DETECTED Jayesh Human Metapneumo PCR NOT DETECTED Nasal M.pneumoniae (PCR) NOT DETECTED Nasal SARS-CoV-2 (PCR) NOT DETECTED - Rads (name of study) Chest x-ray Radiology: Final report received, EMP read contemporaneously, See rad report (No acute abnormality) PD MEDICAL DECISION MAKING - ED course Complexity details: reviewed results, re-evaluated patient, considered differential, d/w patient ED course: Patient feels better after breathing treatment. Patient is well-appearing, nontoxic. Positive for influenza A. We will prescribe an inhaler for home. I will prescribe cough medication as well. No indication for antibiotics. No respiratory distress. No hypoxia. Patient counseled regarding signs and symptoms for which I believe and urgent re-evaluation would be necessary. Patient with good understanding of and agreement to plan and is comfortable going home at this time This document was made in part using voice recognition software. While efforts are made to proofread this document, sound alike and grammatical errors may o ccur. Departure - Departure Disposition: 01 Home, Self Care Clinical Impression: Influenza A Condition: Good Instructions: ED Flu Follow-Up: LEANN LEE DO [Primary Care Provider] - As Needed Prescriptions: Albuterol Sulf [Ventolin Hfa Inhaler] 1 - 2 puffs INH Q4HR PRN #1 each PRN Reason: Shortness Of Air/Wheezing Benzonatate [Tessalon] 200 mg PO TID PRN #30 cap PRN Reason: Cough Comments: Please follow-up with your doctor for further care. Return if you worsen. Your prescriptions were sent to [facility] in [place]. You have tested positive for influenza A today. Discharge Date/Time: 07/09/22 16:21
[2022-07-09 16:22] VITALS: BP 133/89
== END 2022-07-09 16:21 | disposition home or self-care (01) ==
LOC: ED 12:57
DX: J10.1 Influenza due to other identified influenza virus with other respiratory manifestations (principal); Z87.891 Personal history of nicotine dependence
CPT/HCPCS: 71046; 87633; 94640; 94664; 99283; 99284; A9270